=== PATIENT | female | born 1985 | race Two or more races ===

== ENCOUNTER 2017-08-28 21:57 | Inpatient (IN) | payer OTHER ==
[~2017-08-28] VITALS: Ht 171.4 cm; Wt 66.7 kg
[2017-08-28] MEDS ORDERED: VALTREX1000 MG PO (22:26)
[2017-08-28] MEDS ORDERED: PRENATAL TABLE1 EAC1 PO (22:33)
== END 2017-08-31 13:22 | DRG 775 ==
LOC: LDR 21:57 → SURG-SUITE 08-29 04:49
PROC: 10E0XZZ Delivery of Products of Conception, External Approach (ICD-10-PCS; principal; 2017-08-28)
PROC: 0KQM0ZZ Repair Perineum Muscle, Open Approach (ICD-10-PCS; 2017-08-28)
PROC: 4A1HXCZ Monitoring of Products of Conception, Cardiac Rate, External Approach (ICD-10-PCS; 2017-08-28)
DX: O70.1 Second degree perineal laceration during delivery (principal); Z37.0 Single live birth; O69.81X0 Labor and delivery complicated by cord around neck, without compression, not applicable or unspecified; Z3A.36 36 weeks gestation of pregnancy